=== PATIENT | female | born 1955 | race Caucasian/White ===

== ENCOUNTER 2017-01-15 14:57 | Inpatient (IN) | payer OTHER ==
[~2017-01-15] VITALS: Ht 172.7 cm; Wt 100.9 kg
[~2017-01-15 14:57] MED LIST: FLUO20SO PO; INSULIN; LORAZEPAM; METH-378 PO; MTF1000T PO; SITA100T8 PO; SMZ/TMP
[2017-01-15] MEDS ORDERED: SOD CHLORIDE 0.9% 1,000 ML IV STA ×3 (15:25→17:06)
[2017-01-15] MEDS ORDERED: HALOPERIDOL 5 MG INJ IM STA (15:25)
[2017-01-15 15:54] VITALS: Ht 172.7 cm; Wt 100.9 kg
[2017-01-15 16:26] LABS: ADD SCAN DIFF NO
[2017-01-15 16:30] LABS: BASOPHIL # 0.1 10^3/ul (0.0-0.1); BASOPHILS % 0.4 % (0.0-2.0); EOSINOPHILS % 0.1 % (0.0-7.0); HEMATOCRIT 50.3 % (37.0-47.0); HEMOGLOBIN 16.1 g/dl (12.0-16.0); LYMPHOCYTES # 2.2 10^3/ul (0.8-2.9); LYMPHOCYTES % 10.6 % (15.0-51.0); MEAN CORPUSCULAR HEMOGLOBIN 26.1 pg (29.0-33.0); MEAN CORPUSCULAR VOLUME 81.5 fl (82.0-101.0); MEAN PLATELET VOLUME 10.2 fl (7.4-10.4); MONOCYTE # 1.2 10^3/ul (0.3-0.9); NEUTROPHIL # 16.7 10^3/ul (1.6-7.5); NEUTROPHILS % 81.4 % (39.0-77.0); PLATELET COUNT 313 10^3/UL (140-415); RED BLOOD COUNT 6.17 10^6/ul (4.20-5.40); RED CELL DISTRIBUTION WIDTH 15.2 % (11.5-14.5); WHITE BLOOD COUNT 20.5 10^3/ul (4.8-10.8)
[2017-01-15] MEDS ORDERED: DONE10TA7 PO (16:37)
[2017-01-15] MEDS ORDERED: GLIM4TAB PO (16:38)
[2017-01-15] MEDS ORDERED: IMO2 PO (16:38)
[2017-01-15] MEDS ORDERED: HYDR-906 PO (16:41)
[2017-01-15] MEDS ORDERED: BUS5 PO (16:42)
[2017-01-15] MEDS ORDERED: BENA10TA48 PO (16:42)
[2017-01-15] MEDS ORDERED: LORA1TAB PO (16:43)
[2017-01-15] MEDS ORDERED: LEVE500T8 PO (16:43)
[2017-01-15] MEDS ORDERED: ESCI20TA38 PO (16:44)
[2017-01-15] MEDS ORDERED: BACL20TA PO (16:44)
[2017-01-15] MEDS ORDERED: INSU100V3 IJ (16:45)
[2017-01-15] MEDS ORDERED: LORAZEPAM 2 MG INJ ONE (16:46)
[2017-01-15 16:52] LABS: ALANINE AMINOTRANSFERASE 17 IU/L (13-69); ALBUMIN 5.3 g/dl (3.3-4.9); ALBUMIN/GLOBULIN RATIO 1.17; ALKALINE PHOSPHATASE 105 IU/L (42-121); ANION GAP 24 (8-16); ASPARTATE AMINO TRANSFERASE 26 IU/L (15-46); BILIRUBIN,INDIRECT 0.2 mg/dl (0-1.1); BILIRUBIN,TOTAL 0.2 mg/dl (0.2-1.3); BLOOD UREA NITROGEN 39 mg/dl (7-20); CALCIUM 10.9 mg/dl (8.4-10.2); CARBON DIOXIDE 26 mmol/L (21-31); CHLORIDE 94 mmol/L (97-110); CREATININE 1.38 mg/dl (0.44-1.00); GLUCOSE 245 mg/dl (70-220); POTASSIUM 3.7 mmol/L (3.5-5.1); SODIUM 140 mmol/L (135-144); TOTAL PROTEIN 9.8 g/dl (6.1-8.1)
[2017-01-15 16:56] LABS: ACETAMINOPHEN < 10.0 ug/ml (10.0-30.0); ETHANOL < 10.0 mg/dl; SALICYLATE < 1.0 mg/dl (5.0-30.0)
[2017-01-15] MEDS ORDERED: LORAZEPAM 2 MG INJ IV ONE ×2 (17:00→17:30)
[2017-01-15] MEDS ORDERED: AZTREONAM 1 GM/NS (PMX) 50 ML IVPB STA (17:06)
[2017-01-15 17:17] LABS: ADD UMIC YES; UR BILIRUBIN (Dip) 1+ (NEGATIVE); UR BLOOD (Dip) 3+ (NEGATIVE); UR CLARITY CLOUDY (CLEAR); UR COLOR LT. YELLOW (YELLOW); UR GLUCOSE (Dip) NEGATIVE (NEGATIVE); UR KETONES (Dip) 15 (NEGATIVE); UR LEUKOCYTE ESTERASE (Dip) 1+ (NEGATIVE); UR NITRITE (Dip) NEGATIVE (NEGATIVE); UR TOTAL PROTEIN (Dip) 2+ (NEGATIVE); UR UROBILINOGEN (Dip) 0.2 E.U./dL (0.1-1.0)
[2017-01-15] MEDS ORDERED: VANCOMYCIN 1 GM (PMX) 250 ML IVPB ONE (17:30)
[2017-01-15 17:42] LABS: UR BACTERIA MANY; UR TRANSITIONAL EPI CELL FEW; URINE RBCS >50 /HPF (0)
[2017-01-15 17:43] LABS: ICTOTEST NEGATIVE (NEGATIVE)
[2017-01-15 17:56] LABS: BENZODIAZEPINES Negative (NEGATIVE); OPIATES Negative (NEGATIVE)
[2017-01-15] MEDS ORDERED: HALOPERIDOL 5 MG INJ IM ONE (18:00)
[2017-01-15 18:01] LABS: BARBITURATES Negative (NEGATIVE); CANNABINOIDS Negative (NEGATIVE); COCAINE Negative (NEGATIVE)
[2017-01-15 18:42] LABS: Arterial Base Excess -2.8 mmol/L (-3.0-3); Arterial Fraction of Oxyhgb 90.6 % (93.0-99.0); Arterial HCO3 22.4 mmol/L (22.0-26.0); Arterial MetHb 0.1 % (0.0-1.5); MODE MASK - SIMPLE
[2017-01-15] MEDS ORDERED: ONDANSETRON 4 MG INJ IV PRN (19:30)
[2017-01-15] MEDS ORDERED: ACETAMINOPHEN 325 MG TAB PO PRN (19:30)
--- NOTE | 2017-01-15 19:54 | RADRPT ---
PROCEDURE: CT Brain without. CLINICAL INDICATION: Medical clearance. Altered mental status. TECHNIQUE: A CT of the brain was performed on multidetector high-resolution CT scanner utilizing a xial sections from the skull base through the vertex without contrast. The scan was reviewed in sof t tissue brain and high frequency resolution bone algorithm windows. Images were reviewed on a high -resolution PACS workstation. One or more the following does reduction techniques were utilized: Aut omated exposure control, adjustment of the mA/ or kV according to patient's size, or use of iterativ e reconstruction technique. The exam CTDI = 43.16 mGy and the DLP = 720.23 mGy-cm. COMPARISON: Brain CT 03/06/2013. FINDINGS: The ventricles and sulci are mildly prominent indicative of volume loss. There is no intracranial he morrhage, mass effect or midline shift. No abnormal intra-axial or extra-axial fluid collections ar e seen. The zuniga/white matter differentiation is preserved. Punctate nonspecific calcifications are noted in the right frontal lobe. There are mild scattered foci of hypoattenuation in the white matter, which are nonspecific in etiol ogy but likely reflect chronic small vessel ischemic changes. There are mild intracranial vascular calcifications consistent with atherosclerosis. Hyperostosis frontalis interna is noted. The visuali zed paranasal sinuses are essentially clear. IMPRESSION: 1. No acute intracranial hemorrhage, transcortical infarction or mass effect. 2. Mild intracranial atherosclerosis and chronic small vessel ischemic changes. 3. Mild generalized cerebral volume loss. RPTAT: HH .Wallace Ordoñez MD, Date Time Electronically viewed and signed by .Wallace Ordoñez MD, MD on 01/15/2017 19:54 .N/
[2017-01-15] MEDS ORDERED: NALOXONE (0.4 MG/ML) INJ IV ONE (20:00)
--- NOTE | 2017-01-15 20:01 | ERA ---
ER Documentation Chief Complaint Date/Time DATE: 01/15/17 TIME: 19:58 Chief Complaint Altered HPI Patient is a 61-year-old female who presents altered and possible overdose. The patient was given Narcan 4 mg by paramedics and "woke up a bit" by paramedics but is still altered and confused and not following commands. She was brought in by ambulance. Please note the history and physical exam is limited secondary to patient's mental status at this time. She is supposedly on methadone, Ativan, and pain pills per the paramedics. Upon review of old medical records this is the patient's seventh visit to the ER since 2005. ROS All systems reviewed and are negative except as per history of present illness. Medications Home Meds Reported Medications Insulin Regular, Human (Humulin R) 100 Unit/1 Ml Vial, 0 IJ SLIDING SCALE, VIAL 01/15/17 Escitalopram Oxalate* (Escitalopram Oxalate*) 20 Mg Tablet, 20 MG PO DAILY, #30 TAB 01/15/17 Baclofen* (Baclofen*) 20 Mg Tablet, 20 MG PO TID Y for PRN, TAB 01/15/17 Lorazepam* (Lorazepam*) 1 Mg Tablet, 1 MG PO Q6 Y for ANXIETY, #60 TAB 01/15/17 Levetiracetam* (Levetiracetam*) 500 Mg Tablet, 500 MG PO BID, TAB 01/15/17 Buspirone Hcl* (Buspar*) 5 Mg Tab, 5 MG PO QAM, TAB 01/15/17 Benazepril Hcl* (Benazepril Hcl*) 10 Mg Tablet, 10 MG PO DAILY, #30 TAB HOLD IF SBP LESS THAN 110 OR HR LESS THAN 60 01/15/17 Hydrocodone/Acetaminophen ([place] 5-325 Tablet) 1 Each Tablet, 1 EACH PO DAILY, TAB TAKE 1 OR 2 TAB. Q 4 OR 6 HOURS 01/15/17 Loperamide Hcl* (Loperamide Hcl*) 2 Mg Cap, 2 MG PO Q4H, CAP 01/15/17 Glimepiride* (Glimepiride*) 4 Mg Tablet, 4 MG PO WITH BREAKFAST, TAB 01/15/17 Donepezil* (Donepezil*) 10 Mg Tablet, 10 MG PO QHS, #30 TAB 01/15/17 Discontinued Reported Medications [Ativan,Insulin] No Conflict Check 03/06/13 Methadone Hcl (Methadone) 10 Mg Tab, 100 MG PO DAILY 04/13/12 [Smz/Tmp] No Conflict Check 04/13/12 Fluoxetine Hcl* (Prozac*) 20 Mg/5 Ml Solution, 20 MG PO DAILY 04/13/12 Metformin* (Glucophage*) 1,000 Mg Tablet, 1000 MG PO BID 04/13/12 Sitagliptin* (Januvia*) 100 Mg Tablet, 100 MG PO DIALY 04/13/12 [None] No Conflict Check 12/12/10 Allergies Allergies: Coded Allergies: Penicillins (Verified Allergy, Mild, 01/15/17) PMhx/Soc Medical and Surgical Hx: Unable to obtain Hx Neurological Disorder: Yes (DEMENTIA) Hx Cardiac Disorders: Yes (HTN) Hx Miscellaneous Medical Probl: Yes (DM, CHRONIC BACK PAIN) Smoking Status: Unknown if ever smoked FmHx Unable to obtain Physical Exam Vitals Vital Signs Date Time Temp Pulse Resp B/P Pulse Ox O2 Delivery O2 Flow Rate FiO2 01/15/17 19:45 98.9 81 15 99/63 99 Mask 6.0 01/15/17 18:35 92 18 84/49 94 Mask 6.0 94/59 01/15/17 17:45 98.6 95 24 149/110 98 01/15/17 17:00 136 24 172/119 99 Mask 5.0 01/15/17 15:54 98.9 153 34 158/127 95 Physical Exam Const: Confused, not following commands Head: Atraumatic Eyes: Normal Conjunctiva ENT: Normal External Ears, Nose and Mouth. Neck: Full range of motion..~ No meningismus. Resp: Clear to auscultation bilaterally Cardio: Tachycardic rate without murmur Abd: Soft, non tender, non distended. Normal bowel sounds Skin: Pale skin Back: No midline or flank tenderness Ext: No cyanosis, or edema Neur: Not awake, moving all 4 extremities but combative, not following commands Result Diagram: 01/15/17 1600 01/15/17 1600 Results 24 hrs Laboratory Tests Test 01/15/17 16:00 01/15/17 16:55 01/15/17 17:45 01/15/17 18:21 White Blood Count 20.510^3/ul Red Blood Count 6.1710^6/ul Hemoglobin 16.1g/dl Hematocrit 50.3% Mean Corpuscular Volume 81.5fl Mean Corpuscular Hemoglobin 26.1pg Mean Corpuscular Hemoglobin Concent 32.0g/dl Red Cell Distribution Width 15.2% Platelet Count 26124^3/UL Mean Platelet Volume 10.2fl Neutrophils % 81.4% Lymphocytes % 10.6% Monocytes % 6.0% Eosinophils % 0.1% Basophils % 0.4% Nucleated Red Blood Cells % 0.0/100WBC Neutrophils # 16.710^3/ul Lymphocytes # 2.210^3/ul Monocytes # 1.210^3/ul Eosinophils # 0.010^3/ul Basophils # 0.110^3/ul Nucleated Red Blood Cells # 0.010^3/ul Sodium Level 140mmol/L Potassium Level 3.7mmol/L Chloride Level 94mmol/L Carbon Dioxide Level 26mmol/L Anion Gap 24 Blood Urea Nitrogen 39mg/dl Creatinine 1.38mg/dl Glucose Level 245mg/dl Calcium Level 10.9mg/dl Total Bilirubin 0.2mg/dl Direct Bilirubin 0.00mg/dl Indirect Bilirubin 0.2mg/dl Aspartate Amino Transf (AST/SGOT) 26IU/L Alanine Aminotransferase (ALT/SGPT) 17IU/L Alkaline Phosphatase 105IU/L Total Protein 9.8g/dl Albumin 5.3g/dl Globulin 4.50g/dl Albumin/Globulin Ratio 1.17 Salicylates Level < 1.0mg/dl Acetaminophen Level < 10.0ug/ml Ethyl Alcohol Level < 10.0mg/dl Urine Color LT. YELLOW Urine Clarity CLOUDY Urine pH 6.0 Urine Specific [place] 1.025 Urine Ketones 15 Urine Nitrite NEGATIVE Urine Bilirubin 1+ Urine Ictotest NEGATIVE Urine Urobilinogen 0.2 E.U./dL Urine Leukocyte Esterase 1+ Urine Microscopic RBC >50/HPF Urine Microscopic WBC >50/HPF Urine Transitional Epithelial Cells FEW Urine Bacteria MANY Urine Hemoglobin 3+ Urine Glucose NEGATIVE% Urine Total Protein 2+ Urine Opiates Screen Negative Urine Barbiturates Negative Urine Amphetamines Screen Negative Urine Benzodiazepines Screen Negative Urine Cocaine Screen Negative Urine Cannabinoids Negative Lactic Acid Level 3.9mmol/L Blood Gas Specimen Source Blood arterial Arterial Blood Date Drawn 01/15/2017 6:36:00 PM Arterial Blood pH (Temp corrected) 7.359 Arterial Blood pCO2 (Temp correct) 40.7mmhg Arterial Blood pO2 (Temp corrected) 70.6mmHG Arterial Blood HCO3 22.4mmol/L Arterial Blood Base Excess -2.8mmol/L Arterial Blood Oxygen Saturation 91.6mmHG Asher Test N/A Arterial Blood Gas Puncture Site LB Arterial Blood Carboxyhemoglobin 1.0% Arterial Blood Methemoglobin 0.1% Blood Gas A-a O2 Differential 204.0mmHg Oxyhemoglobin Percent 90.6% Total Hemoglobin 14.0g/dl Blood Gas Temperature 37.0C Blood Gas Modality MASK - SIMPLE FiO2 45.0% Blood Gas Critical Value Read Back er Blood Gas Notified Whom ab Blood Gas Notified Time 01/15/2017 6:41:55 PM Current Medications Medications (Trade) Dose Ordered Sig/Arely Route PRN Reason Start Time Stop Time Status Last Admin Dose Admin Sodium Chloride (NS) 1,000 ml @ 1,000 mls/hr Q1H STAT IV 01/15/17 15:25 01/15/17 16:24 DC 01/15/17 16:18 Haloperidol (Haldol) 5 mg ONCE STAT IM 01/15/17 15:25 01/15/17 15:26 DC 01/15/17 16:18 Lorazepam (Ativan) 1 mg ONCE ONCE IV 01/15/17 17:00 01/15/17 17:01 DC 01/15/17 17:40 Lorazepam (Ativan) 2 mg STK-MED ONCE .ROUTE 01/15/17 16:46 01/15/17 16:47 DC Lorazepam 2 mg 2 mg ONCE ONCE IV 01/15/17 17:30 01/15/17 17:31 DC 01/15/17 17:07 Vancomycin HCl 250 ml @ 125 mls/hr ONCE ONCE IVPB 01/15/17 17:30 01/15/17 19:29 DC 01/15/17 19:50 Aztreonam 50 ml @ 100 mls/hr ONCE STAT IVPB 01/15/17 17:06 01/15/17 17:35 DC 01/15/17 18:02 Sodium Chloride 1,000 ml @ 1,000 mls/hr Q1H STAT IV 01/15/17 17:06 01/15/17 18:05 DC 01/15/17 17:40 Sodium Chloride (NS) 1,000 ml @ 1,000 mls/hr Q1H STAT IV 01/15/17 17:06 01/15/17 18:05 DC 01/15/17 17:40 Haloperidol (Haldol) 5 mg ONCE ONCE IM 01/15/17 18:00 01/15/17 18:01 DC Ondansetron HCl (Zofran Inj) 4 mg ER BRIDGE PRN IV NAUSEA AND/OR VOMITING 01/15/17 19:30 01/16/17 19:29 Acetaminophen (Tylenol Tab) 650 mg ER BRIDGE PRN PO MILD PAIN/FEVER 01/15/17 19:30 01/16/17 19:29 Naloxone HCl (Narcan) 0.2 mg ONCE ONCE IV 01/15/17 20:00 01/15/17 20:01 Procedures/MDM EKG read by me: Rate/Rhythm: Tachycardia with right bundle branch block Intervals: Normal Impression: Tachycardia with RBBB CT brain shows no intracranial hemorrhage per radiology. Chest x-ray is pending. Admit MDM: Patient's infectious symptoms have not stabilized and the patient is at risk of rapid decompensation. The patient will be admitted for careful hydration, antibiotic therapy, and infectious source control. Severe Sepsis criteria: Infectious source: Cystitis End organ damage indicated by: Lactate greater than 2 Sepsis Management: Time of recognition of sepsis: 1744 Within 3 hours of recognition: Blood cultures x 2 before broad-spectrum antibiotics: Yes 30 ml/kg NS bolus Completed Initial lactate 3.9 Repeat lactate pending Time of recognition of septic shock: No septic shock Septic Shock Assessment: Any lactic acid > 4.0 No Persistent hypotension (SBP < 90 or 40 mmHg drop, MAP < 65) despite 30 mL/kg IV fluid bolus No Volume Re-assessment for Septic Shock (post 30 ml/kg bolus): No septic shock at this time Persistent Hypotension Treatment: Comfort care No Central line Not Required Vasopressor started Not required I considered further perfusion assessment with CVP measurement, SCVO2, bedside ultrasound volume assessment, passive leg raise, trial of further fluid bolus. And proceeded with 30 ml/kg fluid bolus of NSS, broad spectrum antibiotics, and admission. Accepting Care Team Current data and ongoing care discussed. Admitting Physician: Dr. Negrete from [facility] insurance analyst(s): None Outstanding Data: Culture results and repeat lactic acid Critical Care: Critical care time 35 minutes excluding all billable procedures Emergent fluid management while maintaining close respiratory support. Provision of immediate and broad-spectrum antibiotic therapy. Simultaneous assessment for possible sources in order to direct targeted therapy. Consideration for invasive and chemical support to prevent cardiopulmonary collapse. Departure Diagnosis: Primary Impression: Severe sepsis Additional Impression: Altered level of consciousness Condition: Serious CADE SMITH MD Jan 15, 2017 20:01
--- NOTE | 2017-01-15 21:58 | RADRPT ---
PROCEDURE: XR Chest. CLINICAL INDICATION: Sepsis and dyspnea TECHNIQUE: AP Portable chest. COMPARISON: None available FINDINGS: The soft tissues and bones are remarkable for thoracic spondylosis. Mild bilateral interstitial martinez ma or prominence is present. Mild increased density in the left costophrenic angle compatible with discoid atelectasis or early infiltrate. Recommend PA and lateral chest x-ray when the patient can tolerate. Mild cardiomegaly and vascular calcifications are present of the thoracic aorta . No foc al infiltrates, masses, or effusions are noted. No pleural effusions or pneumothorax is present . IMPRESSION: 1. Mild bilateral interstitial prominence and correlate with diffuse interstitial edema or infiltra te. 2. Left costophrenic angle discoid atelectasis or infiltrate. 3. Mild cardiomegaly and atherosclerotic vascular disease RPTAT: HDC .Sasha Medina MD, Date Time Electronically viewed and signed by .Sasha Medina MD, on 01/15/2017 21:57 .C/
[2017-01-15] MEDS ORDERED: VANCOMYCIN IV PER PHARMACY XX SCH (22:00)
[2017-01-15] MEDS ORDERED: GLUCOSE GEL 15 GRAM TUBE BUCCAL PRN (22:00)
[2017-01-15] MEDS ORDERED: DEXTROSE 50% 50 ML SYRINGE IV PRN ×2 (22:00)
[2017-01-15] MEDS ORDERED: HALOPERIDOL 5 MG INJ IV PRN (22:00)
[2017-01-15] MEDS ORDERED: GLUCOSE GEL 15 GRAM TUBE PO PRN ×2 (22:00)
[2017-01-15] MEDS ORDERED: GLUCAGON 1 MG INJ IM PRN (22:00)
[2017-01-15] MEDS: SOD CHLORIDE 0.9% 1,000 ML IV SCH (22:03)
[2017-01-15] MEDS: metroNIDAZOLE 500 MG/NS (PMX) 100 ML IVPB SCH (22:03)
[2017-01-15] MEDS ORDERED: VANCOMYCIN 1 GM in NS 250 ML IVPB ONE (23:00)
--- NOTE | 2017-01-15 23:46 | RADRPT ---
PROCEDURE: Renal US. CLINICAL INDICATION: Acute renal failure. TECHNIQUE: Multiple sonographic images of the kidneys and urinary bladder were obtained. The imag es were reviewed on a PACS workstation. COMPARISON: No prior studies are available for comparison. FINDINGS: The kidneys are well visualized. The right kidney measures 12.7 x 4.6 x 5.1 cm. The left kidney emily ures 10.6 x 5.2 x 5.3 cm. There are no focal areas of abnormal echogenicity. There is a 9 mm simple cyst in the inferior right kidney. There is no evidence for obstructive uropathy. The urinary bladd er is nearly empty. IMPRESSION: 1. No hydronephrosis. 2. Nearly empty urinary bladder. RPTAT: HTAR .Jorge Alberto Hollingsworth MD, MD Date Time Electronically viewed and signed by .Jorge Alberto Hollingsworth MD, on 01/15/2017 23:45 .R/
[2017-01-16] VITALS (14 sets, daily range): BP systolic 110–188; BP diastolic 55–94; PULSE 50–99; RESP 18–22; TEMP 98.1
[2017-01-16] MEDS: SOD CHLORIDE 0.9% 1,000 ML IV SCH ×3 (06:00→21:38)
[2017-01-16] MEDS: metroNIDAZOLE 500 MG/NS (PMX) 100 ML IVPB SCH ×3 (06:25→22:10)
[2017-01-16] MEDS: AZTREONAM 1 GM/NS (PMX) 50 ML IVPB SCH ×3 (07:11→21:04)
[2017-01-16] MEDS: INSULIN ASPART [NOVOLOG] 3 ML PEN SC SCH ×4 (07:55→20:16)
[2017-01-16] MEDS: LEVETIRACETAM 500 MG TAB PO SCH ×2 (08:22→20:12)
[2017-01-16] MEDS: ESCITALOPRAM 10 MG TAB PO SCH (08:22)
[2017-01-16 08:29] LABS: ADD SCAN DIFF NO
[2017-01-16 08:37] LABS: BASOPHIL # 0.1 10^3/ul (0.0-0.1); BASOPHILS % 0.6 % (0.0-2.0); EOSINOPHILS % 0.2 % (0.0-7.0); HEMATOCRIT 41.7 % (37.0-47.0); HEMOGLOBIN 12.7 g/dl (12.0-16.0); MEAN CORPUSCULAR HEMOGLOBIN 25.5 pg (29.0-33.0); MEAN CORPUSCULAR HGB CONC 30.5 g/dl (32.0-37.0); MEAN CORPUSCULAR VOLUME 83.6 fl (82.0-101.0); MEAN PLATELET VOLUME 10.3 fl (7.4-10.4); MONOCYTE # 1.3 10^3/ul (0.3-0.9); MONOCYTES % 8.9 % (0.0-11.0); NEUTROPHIL # 10.9 10^3/ul (1.6-7.5); NEUTROPHILS % 75.3 % (39.0-77.0); PLATELET COUNT 225 10^3/UL (140-415); RED BLOOD COUNT 4.99 10^6/ul (4.20-5.40); RED CELL DISTRIBUTION WIDTH 15.1 % (11.5-14.5); WHITE BLOOD COUNT 14.5 10^3/ul (4.8-10.8)
--- NOTE | 2017-01-16 08:57 | QN ---
Documentation Comment H&P dict a/p 1. uti 2. delirium 3. observe for withdrawl from opiate (methadone) and ativan 4. dm 5. major depression 6. proph: MERARI Mitchell MD Jan 16, 2017 08:57
[2017-01-16 09:05] LABS: CALCIUM 9.1 mg/dl (8.4-10.2); CREATININE 1.03 mg/dl (0.44-1.00); POTASSIUM 3.6 mmol/L (3.5-5.1)
[2017-01-16] MEDS: ENOXAPARIN 40 MG/0.4 ML SYG SC SCH (09:15)
--- NOTE | 2017-01-16 09:17 | HP ---
DATE OF ADMISSION: 01/15/2017 CHIEF COMPLAINT: Altered mental status. HISTORY OF PRESENT ILLNESS: Ms. Randhawa was brought to the emergency room at [facility] by her for alteration in mental status. She apparently had an exacerbation of chronic low wild k pain, was seen in the ER at [place] and was prescribed oxycodone and Baclofen, which she had been taking as prescribed; however, the following day she began developing acute alteration in ment al status and was brought here to the emergency room. At baseline, the patient does have cognitive impairment/dementia; however, she is able to dress and bathe herself, feed herself, ambulate with a walker, and get to and from the toilet, but had this ac [place] decompensation. PAST MEDICAL HISTORY: Significant for: 1. Dementia. 2. Diabetes. 3. Chronic pain syndrome. 4. Opiate dependence, with chronic daily Methadone. MEDICATIONS: As an outpatient include: 1. Methadone 70 mg daily. 2. Baclofen p.r.n. 3. Aricept 10 mg daily. 4. Benazepril 10 mg daily. 5. BuSpar 5 mg daily. 6. Lexapro 20 mg daily. 7. [place] as needed. 8. Keppra 500 mg b.i.d. 9. Ativan p.r.n. 10. Glimepiride 4 mg daily. 11. Insulin sliding scale. ALLERGIES: PENICILLIN. SOCIAL HISTORY: The patient lives at home with her in [place]. Denies tobacco, alcohol , or illicit drug use. regulates all the medications. FAMILY HISTORY: Noncontributory. REVIEW OF SYSTEMS: Unobtainable secondary to the patient's mental status. PHYSICAL EXAMINATION: VITAL SIGNS: Blood pressure is 154/88, pulse rate 85, respirations 22, temperature is 98.6. She is currently using a simple mask oxygen at 6 liters per minute. GENERAL: Pleasant woman, somnolent, difficult to arouse. Does not answer any questions. HEENT: Normocephalic, atraumatic, without scleral icterus or perioral cyanosis. Mucous membranes d ry. NECK: Soft and supple, without masses. No evidence of jugular venous distention or carotid bruits. CHEST: Clear to auscultation and percussion bilaterally. HEART: Regular rate and rhythm. S1-S2. No added sounds. ABDOMEN: Soft, nontender, nondistended, without palpable hepatosplenomegaly. EXTREMITIES: Without clubbing, cyanosis or edema. SKIN: Without rashes. NEUROLOGIC: Grossly intact. LABORATORY STUDIES: Reveal a hemoglobin of 16.1 g/dL, white count 20,500, platelets of 313,000. So dium 140, potassium 3.7, chloride 94, bicarbonate 26, BUN 39, creatinine 1.38, glucose 245. Liver f unction tests are unremarkable. Lactic acid was first noted to be 3.9 and it has improved to 1.5. UA shows greater than 50 white blood cells, 1+ esterase. Urine toxicology screen interestingly is n egative for both opiates and benzodiazepines. Chest x-ray is read as showing diffuse interstitial e konstantin versus infiltrate. ASSESSMENT AND PLAN: 1. Neurologic: Patient with acute alteration in mental status secondary to delirium, almost certai nly precipitated by a urinary tract infection. Continue antibiotics. 2. Cognitive impairment versus dementia. Continue Aricept. 3. Pulmonary: Patient with acute hypoxemic respiratory failure. Continue oxygen support at this t rachel. 4. Renal: Patient with an elevation of creatinine. Unclear if this is acute versus chronic. Await ing fractional excretion of sodium. Renal ultrasound does not reveal any hydronephrosis. Continue IV fluids and trend creatinine. 5. Observe for possible withdrawal syndrome of both opiates and/or benzodiazepines; however, at thi s point in time because of mental status, will withhold these medications. Add back gently as ashley ated. 6. Prophylaxis with Lovenox. Dictated By: MERARI SANCHES MD RER/NTS Conf#: [id number] DID#: [id number]
[2017-01-16] MEDS ORDERED: VANCOMYCIN 2 GM in SOD CHLORIDE 0.9% 500 ML IVPB SCH (10:00)
[2017-01-16] MEDS: morphine 2 MG INJ IV PRN ×4 (14:08→23:27)
[2017-01-16] MEDS ORDERED: VANCOMYCIN 1.5 GM in SOD CHLORIDE 0.9% 250 ML IVPB SCH (20:00)
[2017-01-16] MEDS: DONEPEZIL 10 MG TAB PO SCH (20:12)
[2017-01-16] MEDS: ACETAMINOPHEN 325 MG TAB PO PRN (20:57)
[2017-01-16] MEDS ORDERED: VANCOMYCIN 1.25 GM in SOD CHLORIDE 0.9% 250 ML IVPB SCH (23:00)
[2017-01-17] VITALS (15 sets, daily range): BP systolic 136–182; BP diastolic 69–84; PULSE 75–88; RESP 16–20
[2017-01-17] MEDS: ACETAMINOPHEN 325 MG TAB PO PRN (00:50)
[2017-01-17] MEDS: morphine 2 MG INJ IV PRN ×9 (03:38→23:02)
[2017-01-17] MEDS: SOD CHLORIDE 0.9% 1,000 ML IV SCH (05:26)
[2017-01-17] MEDS: AZTREONAM 1 GM/NS (PMX) 50 ML IVPB SCH (05:26)
[2017-01-17] MEDS: metroNIDAZOLE 500 MG/NS (PMX) 100 ML IVPB SCH (06:15)
[2017-01-17 06:42] LABS: ADD SCAN DIFF NO
[2017-01-17 07:00] LABS: BASOPHIL # 0.1 10^3/ul (0.0-0.1); BASOPHILS % 0.5 % (0.0-2.0); EOSINOPHILS # 0.2 10^3/ul (0.0-0.5); EOSINOPHILS % 1.8 % (0.0-7.0); HEMATOCRIT 38.7 % (37.0-47.0); HEMOGLOBIN 11.9 g/dl (12.0-16.0); LYMPHOCYTES # 1.3 10^3/ul (0.8-2.9); LYMPHOCYTES % 13.8 % (15.0-51.0); MEAN CORPUSCULAR HEMOGLOBIN 25.9 pg (29.0-33.0); MEAN CORPUSCULAR HGB CONC 30.7 g/dl (32.0-37.0); MEAN CORPUSCULAR VOLUME 84.1 fl (82.0-101.0); MEAN PLATELET VOLUME 10.3 fl (7.4-10.4); MONOCYTE # 0.6 10^3/ul (0.3-0.9); PLATELET COUNT 166 10^3/UL (140-415); RED CELL DISTRIBUTION WIDTH 14.7 % (11.5-14.5); WHITE BLOOD COUNT 9.1 10^3/ul (4.8-10.8)
[2017-01-17 07:06] LABS: CALCIUM 8.9 mg/dl (8.4-10.2); CREATININE 0.65 mg/dl (0.44-1.00); POTASSIUM 3.2 mmol/L (3.5-5.1)
[2017-01-17] MEDS: INSULIN ASPART [NOVOLOG] 3 ML PEN SC SCH ×4 (07:59→20:25)
[2017-01-17] MEDS: ESCITALOPRAM 10 MG TAB PO SCH (08:30)
[2017-01-17] MEDS: LEVETIRACETAM 500 MG TAB PO SCH ×2 (08:30→20:04)
[2017-01-17] MEDS: ENOXAPARIN 40 MG/0.4 ML SYG SC SCH (08:35)
--- NOTE | 2017-01-17 10:22 | PN ---
Date/Time of Note Date/Time of Note DATE: 01/17/17 TIME: 10:20 Assessment/Plan VTE Prophylaxis VTE Prophylaxis Intervention: LMWH Lines/Catheters IV [facility]from [facility] Peripheral IV Urinary Cath still in place: No Assessment/Plan Assessment/Plan 1. uti with esbl, change to amikacin, d/c vanco/flagyl/aztreonam' 2. acute renal failure resolved 3. resolving delirium, slowly add back methadone and ativan to avoid withdrawl syndrome 4. anticipate snf vs home in am Subjective 24 Hr Interval Summary Free Text/Dictation much more alert, some abnormal beliefs about what transpired yesterday (not actual hallucination) Exam/Review of Systems Vital Signs Vitals Vital Signs Date Time Temp Pulse Resp B/P Pulse Ox O2 Delivery O2 Flow Rate FiO2 01/17/17 08:16 87 01/17/17 08:00 Nasal Cannula 2.0 01/17/17 07:57 98.4 20 175/77 98 Intake and Output 01/16/17 01/16/17 01/17/17 15:00 23:00 07:00 Intake Total 650 ml 160 ml 1325 ml Output Total 1700 ml Balance 650 ml 160 ml -375 ml Exam Constitutional: alert Head: normocephalic Respiratory: clear to auscultation Cardiovascular: regular rate and rhythm Gastrointestinal: non-tender, soft Results Result Diagram: 01/17/1760401/17/17 06 Results 24 hrs Laboratory Tests Test 01/16/17 11:53 01/16/17 19:00 01/16/17 20:14 01/17/17 06:05 Bedside Glucose 147 132 Urine Random Creatinine 30.81 Urine Random Sodium 174 H Urine Total Protein 56.0 H White Blood Count 9.1 # Red Blood Count 4.60 Hemoglobin 11.9 L Hematocrit 38.7 Mean Corpuscular Volume 84.1 Mean Corpuscular Hemoglobin 25.9 L Mean Corpuscular Hemoglobin Concent 30.7 L Red Cell Distribution Width 14.7 H Platelet Count 166 # Mean Platelet Volume 10.3 Neutrophils % 76.0 Lymphocytes % 13.8 L Monocytes % 7.0 Eosinophils % 1.8 Basophils % 0.5 Nucleated Red Blood Cells % 0.0 Neutrophils # 7.0 Lymphocytes # 1.3 Monocytes # 0.6 Eosinophils # 0.2 Basophils # 0.1 Nucleated Red Blood Cells # 0.0 Sodium Level 139 Potassium Level 3.2 L Chloride Level 102 Carbon Dioxide Level 31 Anion Gap 9 Blood Urea Nitrogen 19 # Creatinine 0.65 Glucose Level 149 Calcium Level 8.9 Test 01/17/17 07:57 Bedside Glucose 146 Medications Medications Current Medications Donepezil HCl (Aricept) 10 mg QHS PO Last administered on 01/16/17 20:12; Admin Dose 10 MG; Start 01/16/17 at 21:00 Escitalopram Oxalate (Lexapro) 20 mg DAILY PO Last administered on 01/17/17 08 :30; Admin Dose 20 MG; Start 01/16/17 at 09:00 Levetiracetam (Keppra) 500 mg BID PO Last administered on 01/17/17 08:30; Admin Dose 500 MG; Start 01/16/17 at 09:00 Acetaminophen (Tylenol Tab) 650 mg Q4H PRN PO pain/fever Last administered on 00:50; Admin Dose 650 MG; Start 01/15/17 at 22:00 Ondansetron HCl (Zofran Inj) 4 mg Q4H PRN IV nausea; Start 01/15/17 at 22:00 Hydralazine HCl (Apresoline) 25 mg Q6H PRN PO sbp>160 Last administered on 01/16 20:57; Admin Dose 25 MG; Start 01/15/17 at 22:00 Enoxaparin Sodium (Lovenox) 40 mg DAILY SC Last administered on 01/17/17 08:35 ; Admin Dose 40 MG; Start 01/16/17 at 09:00 Miscellaneous Information 1 ea NOTE XX ; Start 01/15/17 at 22:00 Glucose (Glutose) 15 gm Q15M PRN PO DECREASED GLUCOSE; Start 01/15/17 at 22:00 Glucose (Glutose) 22.5 gm Q15M PRN PO DECREASED GLUCOSE; Start 01/15/17 at 22: 00 Dextrose (D50w Syringe) 25 ml Q15M PRN IV DECREASED GLUCOSE; Start 01/15/17 at 22:00 Dextrose (D50w Syringe) 50 ml Q15M PRN IV DECREASED GLUCOSE; Start 01/15/17 at 22:00 Glucagon (Glucagen) 1 mg Q15M PRN IM DECREASED GLUCOSE; Start 01/15/17 at 22:00 Glucose (Glutose) 15 gm Q15M PRN BUCCAL DECREASED GLUCOSE; Start 01/15/17 at 22 :00 Morphine Sulfate (morphine) 2 mg Q1H PRN IV PAIN Last administered on 08:37; Admin Dose 2 MG; Start 01/16/17 at 12:00 Clonidine (Catapres) 0.1 mg Q6H PRN PO ELEVATED BLOOD PRESSURE Last administered on 01/17/17 08:31; Admin Dose 0.1 MG; Start 01/17/17 at 01:00 Amikacin Sulfate AMIKACIN PER PHARMACY NOTE XX ; Start 01/17/17 at 10:30 Amikacin Sulfate/ Sodium Chloride (Amikacin/NS) 254 ml @ 254 mls/hr Q24H IVPB ; Start 01/17/17 at 12:00 MERARI SANCHES MD Jan 17, 2017 10:22
[2017-01-17] MEDS ORDERED: HALOPERIDOL 1 MG TAB PO PRN (10:30)
[2017-01-17] MEDS ORDERED: AMIKACIN IV PER PHARMACY XX SCH (10:30)
[2017-01-17] MEDS: METHADONE 10 MG TAB PO SCH (10:55)
[2017-01-17] MEDS: POTASSIUM CHLORIDE (SR) 20 MEQ TAB PO SCH ×2 (10:55→20:04)
[2017-01-17] MEDS: BENAZEPRIL 10 MG TAB PO SCH (10:55)
[2017-01-17] MEDS: LORAZEPAM 0.5 MG TAB PO PRN ×2 (11:32→20:04)
[2017-01-17] MEDS ORDERED: AMIKACIN 1,000 MG in SOD CHLORIDE 0.9% 250 ML IVPB SCH (12:00)
[2017-01-17] MEDS: ONDANSETRON 4 MG INJ IV PRN ×2 (15:18→21:29)
[2017-01-17] MEDS: DONEPEZIL 10 MG TAB PO SCH (23:05)
[2017-01-18] VITALS (12 sets, daily range): BP systolic 105–177; BP diastolic 58–86; PULSE 69–77; RESP 17–19
[2017-01-18] MEDS: morphine 2 MG INJ IV PRN ×9 (00:49→12:54)
[2017-01-18] MEDS: METHADONE 10 MG TAB PO SCH ×2 (08:09→08:20)
[2017-01-18] MEDS: ESCITALOPRAM 10 MG TAB PO SCH (08:20)
[2017-01-18] MEDS: BENAZEPRIL 10 MG TAB PO SCH ×2 (08:20→20:56)
[2017-01-18] MEDS: LEVETIRACETAM 500 MG TAB PO SCH ×2 (08:21→20:53)
[2017-01-18] MEDS: ENOXAPARIN 40 MG/0.4 ML SYG SC SCH (08:24)
[2017-01-18] MEDS: INSULIN ASPART [NOVOLOG] 3 ML PEN SC SCH ×5 (08:25→20:53)
[2017-01-18 08:32] LABS: CALCIUM 9.3 mg/dl (8.4-10.2); CREATININE 0.66 mg/dl (0.44-1.00)
[2017-01-18] MEDS: ERTAPENEM SODIUM 1 GM in SOD CHLORIDE 0.9% 100 ML IVPB SCH (11:30)
--- NOTE | 2017-01-18 11:45 | PN ---
Date/Time of Note Date/Time of Note DATE: 01/18/17 TIME: 11:29 Assessment/Plan VTE Prophylaxis VTE Prophylaxis Intervention: SCD's Lines/Catheters IV Catheter Type (from Nrsg): Saline Lock Urinary Cath still in place: No Assessment/Plan Assessment/Plan 61 yo female with: 1. ESBL E coli UTI: Will try on Ertapemem and d/c Amikacin. Patient has a PCN allergies Repeat blood cx for ? coag neg staph blood cx / 2. Acute Renal Failure, resolved, Labs pending. 3. Delirium, resolving, Will resume outpatient dosing of Methadone (75 mg po daily per patient) since renal function back to normal and d/c Morphine Ativan to avoid withdrawal syndrome 4. Chronic pain, methadone dependent, resuming methadone 5. Diabetes Mellitus: Starting Lantus and QAC Novolog, check A1c, SSI and holding Glipizide 6. COPD: stable 7. MDD: continue current meds prophylaxis: Lovenox for DvT ppx and protonix for GI ppx Disposition: SNF in AM Subjective 24 Hr Interval Summary Free Text/Dictation Patient doing ok clinically but asking for Morphine an Methadone to be resumed at outpatient doses Exam/Review of Systems Vital Signs Vitals Vital Signs Date Time Temp Pulse Resp B/P Pulse Ox O2 Delivery O2 Flow Rate FiO2 01/18/17 08:52 98.8 78 17 168/74 94 01/18/17 08:10 Nasal Cannula 2.0 Intake and Output 01/17/17 01/17/17 01/18/17 15:00 23:00 07:00 Intake Total 350 ml 650 ml 300 ml Balance 350 ml 650 ml 300 ml Exam Constitutional: alert, obese, oriented Respiratory: clear to auscultation, normal air movement Cardiovascular: nl pulses, regular rate and rhythm Gastrointestinal: non-tender, soft Musculoskeletal: nl extremities to inspection Extremities: normal pulses, other (no edema, clubbing or cyanosis ) Neurological: 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, nl mental status, nl speech, nl strength Results Result Diagram: 01/17/17 0605 01/18/17 0708 Results 24 hrs Laboratory Tests Test 01/17/17 11:33 01/17/17 17:43 01/17/17 20:08 01/18/17 07:08 Bedside Glucose 158 202 206 Sodium Level 138 Potassium Level 4.0 Chloride Level 101 Carbon Dioxide Level 30 Anion Gap 11 Blood Urea Nitrogen 18 Creatinine 0.66 Glucose Level 202 Calcium Level 9.3 Test 01/18/17 08:12 Bedside Glucose 207 Medications Medications Current Medications Donepezil HCl (Aricept) 10 mg QHS PO Last administered on 01/17/17 23:05; Admin Dose 10 MG; Start 01/16/17 at 21:00 Escitalopram Oxalate (Lexapro) 20 mg DAILY PO Last administered on 01/18/17 08 :20; Admin Dose 20 MG; Start 01/16/17 at 09:00 Levetiracetam (Keppra) 500 mg BID PO Last administered on 01/18/17 08:21; Admin Dose 500 MG; Start 01/16/17 at 09:00 Acetaminophen (Tylenol Tab) 650 mg Q4H PRN PO pain/fever Last administered on 00:50; Admin Dose 650 MG; Start 01/15/17 at 22:00 Ondansetron HCl (Zofran Inj) 4 mg Q4H PRN IV nausea Last administered on 21:29; Admin Dose 4 MG; Start 01/15/17 at 22:00 Hydralazine HCl (Apresoline) 25 mg Q6H PRN PO sbp>160 Last administered on 01/17 23:19; Admin Dose 25 MG; Start 01/15/17 at 22:00 Enoxaparin Sodium (Lovenox) 40 mg DAILY SC Last administered on 01/18/17 08:24 ; Admin Dose 40 MG; Start 01/16/17 at 09:00 Miscellaneous Information 1 ea NOTE XX ; Start 01/15/17 at 22:00 Glucose (Glutose) 15 gm Q15M PRN PO DECREASED GLUCOSE; Start 01/15/17 at 22:00 Glucose (Glutose) 22.5 gm Q15M PRN PO DECREASED GLUCOSE; Start 01/15/17 at 22: 00 Dextrose (D50w Syringe) 25 ml Q15M PRN IV DECREASED GLUCOSE; Start 01/15/17 at 22:00 Dextrose (D50w Syringe) 50 ml Q15M PRN IV DECREASED GLUCOSE; Start 01/15/17 at 22:00 Glucagon (Glucagen) 1 mg Q15M PRN IM DECREASED GLUCOSE; Start 01/15/17 at 22:00 Glucose (Glutose) 15 gm Q15M PRN BUCCAL DECREASED GLUCOSE; Start 01/15/17 at 22 :00 Morphine Sulfate (morphine) 2 mg Q1H PRN IV PAIN Last administered on 10:31; Admin Dose 2 MG; Start 01/16/17 at 12:00 Clonidine (Catapres) 0.1 mg Q6H PRN PO ELEVATED BLOOD PRESSURE Last administered on 01/17/17 08:31; Admin Dose 0.1 MG; Start 01/17/17 at 01:00 Amikacin Sulfate AMIKACIN PER PHARMACY NOTE XX ; Start 01/17/17 at 10:30 Amikacin Sulfate/ Sodium Chloride (Amikacin/NS) 254 ml @ 254 mls/hr Q24H IVPB Last administered on 01/17/17 12:51; Admin Dose 254 MLS/HR; Start 01/17/17 at 12:00 Methadone HCl (Methadone) 10 mg DAILY PO Last administered on 01/18/17 08:20; Admin Dose 10 MG; Start 01/17/17 at 11:00 Lorazepam (Ativan) 0.5 mg Q8H PRN PO ANXIETY Last administered on 01/17/17 20: 04; Admin Dose 0.5 MG; Start 01/17/17 at 10:30 Haloperidol (Haldol) 1 mg Q6H PRN PO agitation/hallucination; Start 01/17/17 at 10:30 Benazepril HCl (Lotensin) 10 mg DAILY PO Last administered on 01/18/17 08:20; Admin Dose 10 MG; Start 01/17/17 at 10:30 MARSHA LE Jan 18, 2017 11:39
[2017-01-18] MEDS ORDERED: METHADONE 10 MG TAB PO ONE (12:00)
[2017-01-18] MEDS: PANTOPRAZOLE (EC) 40 MG TAB PO SCH (12:16)
[2017-01-18 12:19] LABS: ADD SCAN DIFF NO
[2017-01-18 12:23] LABS: BASOPHILS % 0.4 % (0.0-2.0); EOSINOPHILS # 0.1 10^3/ul (0.0-0.5); EOSINOPHILS % 0.9 % (0.0-7.0); HEMATOCRIT 38.4 % (37.0-47.0); HEMOGLOBIN 12.1 g/dl (12.0-16.0); LYMPHOCYTES # 1.4 10^3/ul (0.8-2.9); LYMPHOCYTES % 14.9 % (15.0-51.0); MEAN CORPUSCULAR HEMOGLOBIN 26.4 pg (29.0-33.0); MEAN CORPUSCULAR HGB CONC 31.5 g/dl (32.0-37.0); MEAN CORPUSCULAR VOLUME 83.7 fl (82.0-101.0); MEAN PLATELET VOLUME 10.1 fl (7.4-10.4); MONOCYTE # 0.5 10^3/ul (0.3-0.9); MONOCYTES % 5.4 % (0.0-11.0); NEUTROPHIL # 7.4 10^3/ul (1.6-7.5); NEUTROPHILS % 77.9 % (39.0-77.0); PLATELET COUNT 157 10^3/UL (140-415); RED BLOOD COUNT 4.59 10^6/ul (4.20-5.40); RED CELL DISTRIBUTION WIDTH 14.4 % (11.5-14.5); WHITE BLOOD COUNT 9.6 10^3/ul (4.8-10.8)
[2017-01-18] MEDS ORDERED: [UNRECOGNIZED DRUG - REMARK] XX SCH (12:30)
[2017-01-18 12:42] LABS: CALCIUM 9.3 mg/dl (8.4-10.2); CREATININE 0.64 mg/dl (0.44-1.00); POTASSIUM 4.3 mmol/L (3.5-5.1)
[2017-01-18] MEDS: ACETAMINOPHEN 325 MG TAB PO PRN (15:06)
[2017-01-18] MEDS ORDERED: morphine 2 MG INJ IV PRN (18:00)
[2017-01-18] MEDS ORDERED: INSULIN GLARGINE [LANtus] 3 ML PEN SC SCH (20:00)
[2017-01-18] MEDS: DONEPEZIL 10 MG TAB PO SCH (20:56)
[2017-01-19] VITALS (11 sets, daily range): BP systolic 138–198; BP diastolic 63–101; PULSE 57–83; RESP 16–18
[2017-01-19 07:09] LABS: ADD SCAN DIFF NO
[2017-01-19 07:17] LABS: BASOPHILS % 0.4 % (0.0-2.0); EOSINOPHILS # 0.2 10^3/ul (0.0-0.5); EOSINOPHILS % 2.1 % (0.0-7.0); HEMATOCRIT 40.1 % (37.0-47.0); HEMOGLOBIN 12.4 g/dl (12.0-16.0); LYMPHOCYTES # 1.3 10^3/ul (0.8-2.9); MEAN CORPUSCULAR HEMOGLOBIN 25.7 pg (29.0-33.0); MEAN CORPUSCULAR HGB CONC 30.9 g/dl (32.0-37.0); MEAN PLATELET VOLUME 10.6 fl (7.4-10.4); MONOCYTE # 0.4 10^3/ul (0.3-0.9); MONOCYTES % 4.9 % (0.0-11.0); NEUTROPHIL # 5.9 10^3/ul (1.6-7.5); NEUTROPHILS % 76.1 % (39.0-77.0); PLATELET COUNT 174 10^3/UL (140-415); RED BLOOD COUNT 4.83 10^6/ul (4.20-5.40); RED CELL DISTRIBUTION WIDTH 14.4 % (11.5-14.5); WHITE BLOOD COUNT 7.8 10^3/ul (4.8-10.8)
[2017-01-19 07:57] LABS: MAGNESIUM 1.5 mg/dl (1.7-2.5); PHOSPHORUS 2.9 mg/dl (2.5-4.9)
[2017-01-19 08:01] LABS: CALCIUM 9.6 mg/dl (8.4-10.2); CREATININE 0.67 mg/dl (0.44-1.00); POTASSIUM 4.1 mmol/L (3.5-5.1)
[2017-01-19] MEDS: PANTOPRAZOLE (EC) 40 MG TAB PO SCH (08:09)
[2017-01-19] MEDS: BENAZEPRIL 10 MG TAB PO SCH (08:09)
[2017-01-19] MEDS: LEVETIRACETAM 500 MG TAB PO SCH (08:09)
[2017-01-19] MEDS: ESCITALOPRAM 10 MG TAB PO SCH (08:09)
[2017-01-19] MEDS: INSULIN ASPART [NOVOLOG] 3 ML PEN SC SCH ×6 (08:12→17:24)
[2017-01-19] MEDS: ENOXAPARIN 40 MG/0.4 ML SYG SC SCH (08:12)
[2017-01-19] MEDS ORDERED: METHADONE 10 MG TAB PO SCH ×2 (09:00)
[2017-01-19] MEDS ORDERED: BENAZEPRIL 20 MG TAB PO SCH (11:00)
[2017-01-19] MEDS ORDERED: MAGNESIUM SULFATE 2 GM/50 ML 50 ML IVPB ONE (11:00)
--- NOTE | 2017-01-19 11:49 | PN ---
Date/Time of Note Date/Time of Note DATE: 01/19/17 TIME: 11:28 Assessment/Plan VTE Prophylaxis VTE Prophylaxis Intervention: LMWH Lines/Catheters IV Catheter Type (from Nrs): Saline Lock Urinary Cath still in place: No Assessment/Plan Assessment/Plan 61 yo female with: 1. ESBL E coli UTI: Continue Ertapenem daily x14 days Patient has a PCN allergies 2. Coag neg staph blood cx 1/2, likely contaminant, Repeat blood cx NGTD. 3. Acute Renal Failure, resolved. 4. Delirium, resolved. Back on outpatient Methadone dosing 75 mg po daily per patient. d/c Morphine prn at d/c to SNF. 4. Chronic pain, methadone dependent, resuming methadone 5. Diabetes Mellitus: Continue Lantus and QAC Novolog, SSI and holding Glipizide for now. 6. COPD: stable 7. MDD: continue current meds 8. Hypertension: outpatient meds resumed at higher dose and also on Hydralazine and Clonidine prn. prophylaxis: Lovenox for DVT ppx and protonix for GI ppx Disposition: SNF today if bed available. Subjective 24 Hr Interval Summary Free Text/Dictation Patient doing much better and comfortable on RA D/c plan to SNF today for IV abx Exam/Review of Systems Vital Signs Vitals Vital Signs Date Time Temp Pulse Resp B/P Pulse Ox O2 Delivery O2 Flow Rate FiO2 01/19/17 11:18 97.8 65 16 149/64 97 01/19/17 07:16 Nasal Cannula 2.0 Intake and Output 01/18/17 01/18/17 01/19/17 15:00 23:00 07:00 Intake Total 100 ml 950 ml 450 ml Balance 100 ml 950 ml 450 ml Exam Constitutional: alert, obese, oriented Respiratory: clear to auscultation, normal air movement Cardiovascular: nl pulses, regular rate and rhythm Gastrointestinal: non-tender, soft Musculoskeletal: nl extremities to inspection Extremities: normal pulses, other (no edema, clubbing or cyanosis ) 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, nl mental status, nl speech, other (strength at baseline ) Results Result Diagram: 01/19/17 0630 01/19/17 0636 Results 24 hrs Laboratory Tests Test 01/18/17 12:03 01/18/17 12:05 01/18/17 16:58 01/18/17 20:39 Bedside Glucose 230 H 201 168 White Blood Count 9.6 Red Blood Count 4.59 Hemoglobin 12.1 Hematocrit 38.4 Mean Corpuscular Volume 83.7 Mean Corpuscular Hemoglobin 26.4 L Mean Corpuscular Hemoglobin Concent 31.5 L Red Cell Distribution Width 14.4 Platelet Count 157 Mean Platelet Volume 10.1 Neutrophils % 77.9 H Lymphocytes % 14.9 L Monocytes % 5.4 Eosinophils % 0.9 Basophils % 0.4 Nucleated Red Blood Cells % 0.0 Neutrophils # 7.4 Lymphocytes # 1.4 Monocytes # 0.5 Eosinophils # 0.1 Basophils # 0.0 Nucleated Red Blood Cells # 0.0 Sodium Level 136 Potassium Level 4.3 Chloride Level 98 Carbon Dioxide Level 33 H Anion Gap 9 Blood Urea Nitrogen 17 Creatinine 0.64 Glucose Level 227 H Calcium Level 9.3 Test 01/19/17 06:30 01/19/17 06:36 01/19/17 08:07 White Blood Count 7.8 Red Blood Count 4.83 Hemoglobin 12.4 Hematocrit 40.1 Mean Corpuscular Volume 83.0 Mean Corpuscular Hemoglobin 25.7 L Mean Corpuscular Hemoglobin Concent 30.9 L Red Cell Distribution Width 14.4 Platelet Count 174 Mean Platelet Volume 10.6 H Neutrophils % 76.1 Lymphocytes % 16.0 Monocytes % 4.9 Eosinophils % 2.1 Basophils % 0.4 Nucleated Red Blood Cells % 0.0 Neutrophils # 5.9 Lymphocytes # 1.3 Monocytes # 0.4 Eosinophils # 0.2 Basophils # 0.0 Nucleated Red Blood Cells # 0.0 Phosphorus Level 2.9 Magnesium Level 1.5 L Sodium Level 136 Potassium Level 4.1 Chloride Level 98 Carbon Dioxide Level 29 Anion Gap 13 Blood Urea Nitrogen 21 H Creatinine 0.67 Glucose Level 230 H Calcium Level 9.6 Bedside Glucose 229 H Medications Medications Current Medications Donepezil HCl (Aricept) 10 mg QHS PO Last administered on 01/18/17 20:56; Admin Dose 10 MG; Start 01/16/17 at 21:00 Escitalopram Oxalate (Lexapro) 20 mg DAILY PO Last administered on 01/19/17 08 :09; Admin Dose 20 MG; Start 01/16/17 at 09:00 Levetiracetam (Keppra) 500 mg BID PO Last administered on 01/19/17 08:09; Admin Dose 500 MG; Start 01/16/17 at 09:00 Acetaminophen (Tylenol Tab) 650 mg Q4H PRN PO pain/fever Last administered on 15:06; Admin Dose 650 MG; Start 01/15/17 at 22:00 Ondansetron HCl (Zofran Inj) 4 mg Q4H PRN IV nausea Last administered on 21:29; Admin Dose 4 MG; Start 01/15/17 at 22:00 Hydralazine HCl (Apresoline) 25 mg Q6H PRN PO sbp>160 Last administered on 01/18 15:06; Admin Dose 25 MG; Start 01/15/17 at 22:00 Enoxaparin Sodium (Lovenox) 40 mg DAILY SC Last administered on 01/19/17 08:12 ; Admin Dose 40 MG; Start 01/16/17 at 09:00 Miscellaneous Information 1 ea NOTE XX ; Start 01/15/17 at 22:00 Glucose (Glutose) 15 gm Q15M PRN PO DECREASED GLUCOSE; Start 01/15/17 at 22:00 Glucose (Glutose) 22.5 gm Q15M PRN PO DECREASED GLUCOSE; Start 01/15/17 at 22: 00 Dextrose (D50w Syringe) 25 ml Q15M PRN IV DECREASED GLUCOSE; Start 01/15/17 at 22:00 Dextrose (D50w Syringe) 50 ml Q15M PRN IV DECREASED GLUCOSE; Start 01/15/17 at 22:00 Glucagon (Glucagen) 1 mg Q15M PRN IM DECREASED GLUCOSE; Start 01/15/17 at 22:00 Glucose (Glutose) 15 gm Q15M PRN BUCCAL DECREASED GLUCOSE; Start 01/15/17 at 22 :00 Clonidine (Catapres) 0.1 mg Q6H PRN PO ELEVATED BLOOD PRESSURE Last administered on 01/19/17 06:40; Admin Dose 0.1 MG; Start 01/17/17 at 01:00 Lorazepam (Ativan) 0.5 mg Q8H PRN PO ANXIETY Last administered on 01/17/17 20: 04; Admin Dose 0.5 MG; Start 01/17/17 at 10:30 Haloperidol 1 mg 1 mg Q6H PRN PO agitation/hallucination; Start 01/17/17 at 10: 30 Ertapenem/Sodium Chloride (Invanz/NS) 100 ml @ 200 mls/hr Q24H IVPB Last administered on 01/18/17 11:30; Admin Dose 200 MLS/HR; Start 01/18/17 at 11:30 Pantoprazole (Protonix Tab) 40 mg DAILY PO Last administered on 01/19/17 08:09 ; Admin Dose 40 MG; Start 01/18/17 at 12:00 Methadone HCl (Methadone) 75 mg DAILY PO Last administered on 01/19/17 08:10; Admin Dose 75 MG; Start 01/19/17 at 09:00 Morphine Sulfate (morphine) 2 mg Q6 PRN IV PAIN Last administered on 01/19/17 06:44; Admin Dose 2 MG; Start 01/18/17 at 18:00 Insulin Glargine 20 unit 20 unit DAILY@20 SC Last administered on 01/18/17 20: 57; Admin Dose 20 UNIT; Start 01/18/17 at 20:00 Magnesium Sulfate (Magnesium Sulfate 2 Gm/50 ml) 50 ml @ 25 mls/hr ONCE ONCE IVPB ; Start 01/19/17 at 11:00; Stop 01/19/17 at 12:59 Benazepril HCl (Lotensin) 20 mg BID PO ; Start 01/19/17 at 11:00 MARSHA LE Jan 19, 2017 11:44
--- NOTE | 2017-01-19 11:50 | PDOCDIS ---
Discharge Instructions CONDITION Patient Condition: Stable HOME CARE INSTRUCTIONS: Special Diet: 1800 calorie ACTIVITY: Activity Restrictions: Slowly Increase Activity FOLLOW UP/APPOINTMENTS Appointments Follow up with PCP Follow up with outpatient pain management/methadone clinic MARSHA LE Jan 19, 2017 11:50
[2017-01-19] MEDS: ACETAMINOPHEN 325 MG TAB PO PRN (12:31)
[2017-01-19] MEDS ORDERED: LINAGLIPTIN 5 MG TABLET PO SCH (13:30)
[2017-01-19] MEDS: LORAZEPAM 0.5 MG TAB PO PRN (13:34)
[2017-01-19] MEDS: ERTAPENEM SODIUM 1 GM in SOD CHLORIDE 0.9% 100 ML IVPB SCH (14:35)
== END 2017-01-19 19:55 | DRG 871 ==
LOC: E/R 14:57 → TEL 19:28 → MS4 01-17 18:10
PROVIDERS: ADMIT Legal Medicine; ATTEND Legal Medicine
DX: A41.51 Sepsis due to Escherichia coli [E. coli] (principal); G93.41 Metabolic encephalopathy; N17.9 Acute kidney failure, unspecified; F03.90 Unspecified dementia, unspecified severity, without behavioral disturbance, psychotic disturbance, mood disturbance, and anxiety; N39.0 Urinary tract infection, site not specified; B96.89 Other specified bacterial agents as the cause of diseases classified elsewhere; R40.2422 Glasgow coma scale score 9-12, at arrival to emergency department; Z79.891 Long term (current) use of opiate analgesic; F32.9 Major depressive disorder, single episode, unspecified; R41.0 Disorientation, unspecified; G31.84 Mild cognitive impairment of uncertain or unknown etiology; G89.29 Other chronic pain; J44.9 Chronic obstructive pulmonary disease, unspecified; E11.9 Type 2 diabetes mellitus without complications
CPT/HCPCS: 36415; 36600; 70450; 71010; 76775; 80048; 80053; 80150; 80306; 80307; 81001; 81003; 82803; 82962; 83036; 83605; 83735; 84100; 84155; 84300; 85025; 87040; 87086; 93005; 96365; 96366; 96372; 96375; 97110; 97162; 97530; J0278; J1335; J1630; J1650; J1815; J2060; J2270; J2405; J3370; J3475; J7030; J7040; J7050

== ENCOUNTER 2019-04-03 04:16 | Inpatient (IN) | payer OTHER ==
[~2019-04-03] VITALS: Ht 167.6 cm; Wt 89.0 kg
[~2019-04-03 04:16] MED LIST changes: +BACL20TA PO; +BENA10TA4 PO; +BENA40TA56 PO; +BUS5 PO; +DONE10TA7 PO; +ESCI20TA38 PO; -FLUO20SO PO; +FURO40TA4 PO; +GLIM4TAB PO; +HYDR-4011 PO; +INSU100V3 IJ; -INSULIN; +LEVE500T8 PO; +LOPE-123 PO; +LORA1TAB PO; -LORAZEPAM; -METH-378 PO; +METO-429 PO; -MTF1000T PO; -SITA100T8 PO; -SMZ/TMP
[2019-04-03] MEDS ORDERED: CEFEPIME 1GM/50 ML (PMX) 50 ML IVPB STA (05:08)
[2019-04-03] MEDS ORDERED: VANCOMYCIN 1 GM (PMX) 250 ML IVPB STA (05:08)
[2019-04-03] MEDS ORDERED: FUROSEMIDE 40 MG INJ IV ONE ×2 (06:00→12:00)
[2019-04-03] MEDS ORDERED: ONDANSETRON 4 MG INJ IV PRN ×2 (06:00→06:30)
[2019-04-03] MEDS ORDERED: ACETAMINOPHEN 325 MG TAB PO PRN ×2 (06:00→06:30)
[2019-04-03] MEDS ORDERED: BACLOFEN 10 MG TAB PO PRN (06:30)
[2019-04-03] MEDS ORDERED: DOCUSATE SODIUM 100 MG CAP PO PRN (06:30)
[2019-04-03] MEDS ORDERED: DEXTROSE 50% 50 ML SYRINGE IV PRN ×2 (06:30)
[2019-04-03] MEDS ORDERED: GLUCOSE GEL 15 GRAM TUBE PO PRN ×2 (06:30)
[2019-04-03] MEDS ORDERED: NACL 0.9% 3 ML SYG IV SCH (06:30)
[2019-04-03] MEDS ORDERED: GLUCOSE GEL 15 GRAM TUBE BUCCAL PRN (06:30)
[2019-04-03] MEDS ORDERED: GLUCAGON 1 MG INJ IM PRN (06:30)
[2019-04-03] MEDS: ACCU-CHEK XX SCH ×4 (07:22→21:00)
[2019-04-03] MEDS: LORAZEPAM 1 MG TAB PO PRN ×3 (09:58→23:21)
[2019-04-03] MEDS: HYDROCODONE/APAP (5/325) TAB PO PRN ×3 (09:59→23:21)
[2019-04-03] MEDS: BUSPIRONE 5 MG TAB PO SCH (09:59)
[2019-04-03] MEDS: LEVETIRACETAM 500 MG TAB PO SCH ×2 (09:59→20:31)
[2019-04-03] MEDS: BENAZEPRIL 10 MG TAB PO SCH (10:00)
[2019-04-03] MEDS: GLIMEPIRIDE 4 MG TAB PO SCH (10:00)
[2019-04-03] MEDS: ENOXAPARIN 40 MG/0.4 ML SYG SC SCH (10:01)
[2019-04-03] MEDS: FAMOTIDINE 20 MG INJ IV SCH ×2 (10:01→20:30)
[2019-04-03] MEDS ORDERED: METHADONE (1 MG/ML 5 ML PO UD SYG) PO SCH (12:30)
[2019-04-03] MEDS ORDERED: METHADONE 1 MG/ML (ORAL SOLN) PO SCH (13:00)
[2019-04-03] MEDS: CEFEPIME 1GM/50 ML (PMX) 50 ML IVPB SCH ×2 (15:17→22:08)
[2019-04-03 18:04] VITALS: BP 177/93; PULSE 80; RESP 18
[2019-04-03 19:35] VITALS: Ht 167.6 cm; Wt 89.0 kg
[2019-04-03 20:00] VITALS: BP 169/79; PULSE 77; RESP 18
[2019-04-03] MEDS: DONEPEZIL 10 MG TAB PO SCH (20:31)
[2019-04-03] MEDS: INSULIN GLARGINE [LANTus] (100 UNITS/ML) SYG SC SCH (22:19)
[2019-04-03] MEDS ORDERED: ALTEPLASE (CATHFLO) 2 MG INJ CATHETER ONE (23:00)
[2019-04-04] VITALS (10 sets, daily range): BP systolic 137–178; BP diastolic 72–88; PULSE 76–82; RESP 18–90
[2019-04-04] MEDS ORDERED: METHADONE 1 MG/ML (ORAL SOLN) PO SCH (06:00)
[2019-04-04] MEDS: CEFEPIME 1GM/50 ML (PMX) 50 ML IVPB SCH ×3 (06:08→21:58)
[2019-04-04] MEDS: METHADONE 1 MG/ML (ORAL SOLN) PO SCH (06:22)
[2019-04-04] MEDS: ACCU-CHEK XX SCH ×4 (07:25→21:00)
[2019-04-04] MEDS: BUSPIRONE 5 MG TAB PO SCH (08:45)
[2019-04-04] MEDS: LEVETIRACETAM 500 MG TAB PO SCH ×2 (08:45→20:16)
[2019-04-04] MEDS: FAMOTIDINE 20 MG INJ IV SCH ×3 (08:46→20:16)
[2019-04-04] MEDS: BENAZEPRIL 10 MG TAB PO SCH (08:46)
[2019-04-04] MEDS: GLIMEPIRIDE 4 MG TAB PO SCH (08:46)
[2019-04-04] MEDS: LORAZEPAM 1 MG TAB PO PRN ×3 (08:50→20:56)
[2019-04-04] MEDS: ENOXAPARIN 40 MG/0.4 ML SYG SC SCH (09:10)
[2019-04-04] MEDS ORDERED: ALTEPLASE (CATHFLO) 2 MG INJ CATHETER ONE (10:30)
[2019-04-04] MEDS: INSULIN ASPART [NOVOLOG] 3 ML PEN SC SCH ×3 (12:16→21:50)
[2019-04-04] MEDS: HYDROCODONE/APAP (5/325) TAB PO PRN ×2 (15:32→20:56)
[2019-04-04] MEDS: DONEPEZIL 10 MG TAB PO SCH (20:17)
[2019-04-04] MEDS: METOPROLOL 50 MG TAB PO SCH (21:40)
[2019-04-04] MEDS: INSULIN GLARGINE [LANTus] (100 UNITS/ML) SYG SC SCH (21:50)
[2019-04-05 00:31] VITALS: BP 169/92; PULSE 63; RESP 18
[2019-04-05] MEDS: LORAZEPAM 1 MG TAB PO PRN ×2 (02:47→10:52)
[2019-04-05] MEDS: HYDROCODONE/APAP (5/325) TAB PO PRN ×2 (02:47→10:52)
[2019-04-05 04:02] VITALS: BP 157/84; PULSE 67; RESP 18
[2019-04-05] MEDS: CEFEPIME 1GM/50 ML (PMX) 50 ML IVPB SCH ×2 (05:56→14:09)
[2019-04-05] MEDS: METHADONE 1 MG/ML (ORAL SOLN) PO SCH (05:57)
[2019-04-05] MEDS ORDERED: FUROSEMIDE 40 MG INJ IV ONE (06:00)
[2019-04-05 07:17] VITALS: BP 153/70; PULSE 68; RESP 20
[2019-04-05] MEDS: METOPROLOL 50 MG TAB PO SCH (08:06)
[2019-04-05] MEDS: GLIMEPIRIDE 4 MG TAB PO SCH (08:06)
[2019-04-05] MEDS: LEVETIRACETAM 500 MG TAB PO SCH (08:06)
[2019-04-05] MEDS: BUSPIRONE 5 MG TAB PO SCH (08:07)
[2019-04-05] MEDS: BENAZEPRIL 10 MG TAB PO SCH (08:07)
[2019-04-05] MEDS: INSULIN ASPART [NOVOLOG] 3 ML PEN SC SCH ×2 (08:14→12:17)
[2019-04-05] MEDS: ENOXAPARIN 40 MG/0.4 ML SYG SC SCH (08:14)
[2019-04-05] MEDS: ACCU-CHEK XX SCH ×2 (08:14→11:49)
[2019-04-05] MEDS ORDERED: FAMOTIDINE 20 MG TAB PO SCH (09:00)
[2019-04-05] MEDS ORDERED: BENAZEPRIL 10 MG TAB PO ONE (11:00)
[2019-04-05 11:07] VITALS: BP 141/73; PULSE 71; RESP 20
[2019-04-05] MEDS ORDERED: LORAZEPAM 1 MG TAB PO PRN (12:30)
[2019-04-05 15:09] VITALS: BP 140/70; PULSE 61; RESP 20
[2019-04-06] MEDS ORDERED: BENAZEPRIL 40 MG TAB PO SCH (09:00)
[2019-04-06] MEDS ORDERED: BENAZEPRIL 10 MG TAB PO SCH (09:00)
== END 2019-04-05 19:00 | DRG 292 ==
LOC: E/R 04:16 → TEL 05:40
PROVIDERS: ADMIT Internal Medicine; ATTEND Internal Medicine
PROC: 4A033R1 Measurement of Arterial Saturation, Peripheral, Percutaneous Approach (ICD-10-PCS; principal; 2019-04-03)
DX: I13.0 Hypertensive heart and chronic kidney disease with heart failure and stage 1 through stage 4 chronic kidney disease, or unspecified chronic kidney disease (principal); F11.20 Opioid dependence, uncomplicated; L03.115 Cellulitis of right lower limb; E11.22 Type 2 diabetes mellitus with diabetic chronic kidney disease; I50.9 Heart failure, unspecified; F03.90 Unspecified dementia, unspecified severity, without behavioral disturbance, psychotic disturbance, mood disturbance, and anxiety; N18.3 Chronic kidney disease, stage 3 (moderate); G89.4 Chronic pain syndrome; I45.10 Unspecified right bundle-branch block; D72.829 Elevated white blood cell count, unspecified; E11.621 Type 2 diabetes mellitus with foot ulcer; L97.519 Non-pressure chronic ulcer of other part of right foot with unspecified severity; Z88.0 Allergy status to penicillin; Z89.411 Acquired absence of right great toe; Z79.4 Long term (current) use of insulin
CPT/HCPCS: 36415; 71045; 80048; 82803; 82962; 83036; 83605; 83880; 84443; 84484; 85025; 85378; 85651; 87081; 93005; 93306; 94660; J0692; J1650; J1815; J1940; J2997; J3370